=== PATIENT | male | born 1995 | race Caucasian/White ===

== ENCOUNTER 2023-11-07 09:17 | Emergency (ER) | payer BC, SELFPAY ==
[2023-11-07 09:23] VITALS: BP 181/126; PULSE 90; TEMP 37.1; O2SAT 93; BMI 33.3
--- NOTE | 2023-11-07 09:24 | XRR_ITS ---
PROCEDURE INFORMATION: Exam: XR Left Hand Exam date and time: 11/07/2023 9:38 AM Age: 28 years old Clinical indication: Injury or trauma; Other: Crushed his hand in a 5th wheel hitch. Crushing; Left TECHNIQUE: Imaging protocol: Radiologic exam of the left hand. Views: 3 or more views. COMPARISON: No relevant prior studies available. FINDINGS: Bones/joints: No fracture or dislocation is appreciated. Joint spaces are relatively well preserved. Bony mineralization is normal. Soft tissues: Soft tissue emphysema is suspected adjacent to the MCP joint of the 3rd digit. XR/XR hand LT min 3V* 23150 IMPRESSION: 1. Suspect soft tissue emphysema.
[2023-11-07 09:34] VITALS: BP 181/126; PULSE 84; O2SAT 95
--- NOTE | 2023-11-07 10:01 | W.ED.EXTPRO ---
HPI - Extremity Problem General: Chief complaint: Extremity Injury, Upper Stated complaint: smashed Left hand/lac Time Seen by Provider: 11/07/23 09:18 History of Present Illness: 28-year-old male presents emergency room with complaints of a laceration on his left palm. He was working on 1/5 wheel hats and had his hand crushed sustained 8 cm laceration on the palm of his hand he has normal function and sensation on his left hand hand and fingers. Denies any other injury Physical Exam Narrative: EXAM NARRATIVE: Laceration to the left hand. Approximately 8 cm in length full-thickness. No exposure of flexor tendons. Patient is able to flex and hold against resistance. Normal sensation distally to the fingertips. Procedures Laceration Laceration 1: Site: hand Side (If applicable): left Size (cm): 8 Description: linear Depth: simple, single layer Local Anesthetic: lidocaine 1% and with epi Skin layer closed with: nylon Size (cm): 3-0 Number of sutures: 1 Course Vital Signs: Vital signs: Vital Signs Temperature 98.7 F 11/07/23 11:31 Pulse Rate 84 11/07/23 11:31 Blood Pressure 181/126 11/07/23 11:31 Pulse Oximetry 95 11/07/23 11:31 Oxygen Delivery Me thod Room Air 11/07/23 09:34 MDM - Extremity (Nontraumatic) Medical Decision Making Laceration was Nestabs 1% lidocaine with epinephrine. Irrigated with half a liter of sterile water.. Single-dose running suture applied good approximation cosmesis and hemostasis. Wound care instructions given wound dressed apply topical antibiotic ointment once daily sutures to be removed in 10 days. Return for signs of infection. He was given tetanus update and a gram of Ancef while in the emergency room. Lab Data Radiology Impressions Hand X-Ray 11/07/23 09:24 IMPRESSION: 1. Suspect soft tissue emphysema. All radiology interpretation(s) finalized by discharge Discharge Plan Discharge Patient Disposition: Home Clinical Impression: Laceration Condition: Stable Prescriptions: New mupirocin 2 % ointment 1 applic topical DAILY Qty: 15 0RF Discharge Orders: Discharge ED (Routine); Ordered 11/07/23 Ordered By: Zachary Dobson Referrals: Brielle Obando MD [Primary Care Provider] - Discharge Diet: Usual diet Discharge Activity: Resume usual activity Patient Instructions: Opioid Safety, Pain Management Activity Restrictions/Additional Instructions: Thank you for choosing [facility] for your healthcare needs today. It is very important that you follow up as instructed or that you return to the Emergency Department should you have concerns or if your condition changes or worsens in any way. Apply dressing to wound daily. Apply topical antibiotic ointment to the wound Telfa and wrap. You can use Tylenol or ibuprofen for pain. Keep hand covered while working sutures can be removed in 10 days by your primary care physician or an urgent care clinic. Coding Level of Care Code ED [employer]
[2023-11-07] MEDS: tetanus-dipt-pertussis 0.5 mL SDV IM (10:27)
[2023-11-07] MEDS: ceFAZolin 1,000 mg SDV 1000 MG IVP (10:30)
[2023-11-07 11:31] VITALS: BP 181/126; PULSE 84; TEMP 37.1; O2SAT 95
== END 2023-11-07 11:34 | disposition home or self-care (01) ==
PROVIDERS: Emergency Provider Family Medicine; PCP Family Medicine
DX: S61.412A Laceration without foreign body of left hand, initial encounter (principal); W23.0XXA Caught, crushed, jammed, or pinched between moving objects, initial encounter; Z23 Encounter for immunization
CPT/HCPCS: 12004; 73130; 90471; 90715; 96374; 99284; J0690